=== PATIENT | male | born 1985 | race Caucasian/White ===

== ENCOUNTER 2018-07-29 20:44 | Emergency (ER) | payer OTHER ==
[2018-07-29 20:56] VITALS: BP 157/109
--- NOTE | 2018-07-29 21:26 | UC ---
Hand/Wrist HPI - HPI Summary HPI Summary: 33-year-old male comes in with a chief complaint of right wrist pain. This morning when he woke up he had some swelling and pain on the dorsal aspect of the right wrist. Pain radiates into the dorsum of the right hand to the MCP joints. It also radiates medially into the distal forearm on the dorsal aspect. Pain is worse with flexion extension and other movements of the wrist. No weakness or numbness no known injury. No fevers or chills no skin break. Patient has full range of motion however it is painful. - History Of Current Complaint Chief Complaint: UCUpperExtremity Stated Complaint: HAND PAIN Time Seen by Provider: 07/29/18 21:10 Pain Intensity: 5 - Allergies/Home Medications Allergies/Adverse Reactions: Allergies Allergy/AdvReac Type Severity Reaction Status Date / Time No Known Allergies Allergy Verified 07/29/18 20:56 Home Medications: Home Medications Ibuprofen TAB* [Advil TAB*] 400 mg PO ONCE PRN 07/29/18 [History Confirmed 07/29] PMH/Surg Hx/FS Hx/Imm Hx Previously Healthy: Yes - Surgical History Surgical History: Yes Surgery Procedure, Year, and Place: Appendectomy 2013 - Family History Known Family History: Positive: Non-Contributory - Social History Alcohol Use: Occasionally Substance Use Type: None Smoking Status (MU): Never Smoked Tobacco Review of Systems All Other Systems Reviewed And Are Negative: Yes Constitutional: Positive: Negative Skin: Positive: Negative Eyes: Positive: Negative ENT: Positive: Negative Respiratory: Positive: Negative Cardiovascular: Positive: Negative Motor: Positive: Negative Neurovascular: Positive: Negative Musculoskeletal: Positive: Other: - SEE HPI Neurological: Positive: Negative Psychological: Positive: Negative Is Patient Immunocompromised?: No Physical Exam Triage Information Reviewed: Yes Appearance: Well-Appearing, No Pain Distress, Well-Nourished Vital Signs: Initial Vital Signs Temp 98 F 07/29/18 20:52 Pulse 82 07/29/18 20:52 Resp 16 07/29/18 20:52 BP 157/109 07/29/18 20:52 Pulse Ox 100 07/29/18 20:52 Vital Signs Reviewed: Yes Eye Exam: Normal Eyes: Positive: Conjunctiva Clear Neck exam: Normal Neck: Positive: Supple Musculoskeletal: Positive: Other: - Right wrist has some swelling that is soft to palpation on the dorsal aspect at the base of the second and third metacarpals. It is not hot to touch. There is some erythema in this area. Tender to palpation of the dorsum of the hand to the MCPs and also slightly proximally into the distal forearm. No snuffbox tenderness. Fingers have good range of motion but there is pain associated with full extension and flexion of both the fingers and the wrist. Elbow has full range of motion. There is normal capillary refill and no sensation deficit in the fingers hand wrist and forearm. Neurological Exam: Normal Neurological: Positive: Alert, Muscle Tone Normal Psychological Exam: Normal Psychological: Positive: Age Appropriate Behavior Skin Exam: Normal Hand/Wrist Course/Dx - Course Course Of Treatment: I discussed the x-rays with the patient and his partner. I do not see any fracture radiologist reading is pending. Nursing placed a cock -up splint and the patient is neurovascularly intact after placement. Overall the plan is as to treated as a sprain with eyes anti-inflammatories and immobilization. Follow-up with orthopedics if not completely improved. Get reevaluated sooner if worse or any other concerns. - Differential Dx/Diagnosis Provider Diagnosis: Pain and swelling of right wrist Discharge - Sign-Out/Discharge Documenting (check all that apply): Patient Departure All imaging exams completed and their final reports reviewed: No - Discharge Plan Condition: Stable Disposition: HOME Patient Education Materials: Wrist Sprain (ED) Referrals: Tani Mitchell MD [Medical Doctor] - Additional Instructions: FOLLOW UP WITH ORTHOPEDICS, DR MITCHELL, IF NOT COMPLETELY IMPROVED. TAKE IBUPROFEN 600MG EVERY 6 HOURS NEEDED. GET RECHECKED FOR ANY WORSENING OF YOUR CONDITION; PAIN, SIGNS OF INFECTION, SPREAD OF THE SWELLING AND PAIN OR QUESTIONS OR CONCERNS. - Billing Disposition and Condition Condition: STABLE Disposition: Home
--- NOTE | 2018-07-30 11:41 | UC ---
- Progress Note Progress Note: XR: IMPRESSION: #. Negative exam No change in plan of care Course/Dx - Diagnoses Provider Diagnoses: Pain and swelling of right wrist Discharge - Sign-Out/Discharge Documenting (check all that apply): Post-Discharge Follow Up All imaging exams completed and their final reports reviewed: Yes - Discharge Plan Condition: Stable Disposition: HOME Patient Education Materials: Wrist Sprain (ED) Referrals: Tani Mitchell MD [Medical Doctor] - Additional Instructions: FOLLOW UP WITH ORTHOPEDICS, DR MITCHELL, IF NOT COMPLETELY IMPROVED. TAKE IBUPROFEN 600MG EVERY 6 HOURS NEEDED. GET RECHECKED FOR ANY WORSENING OF YOUR CONDITION; PAIN, SIGNS OF INFECTION, SPREAD OF THE SWELLING AND PAIN OR QUESTIONS OR CONCERNS. - Billing Disposition and Condition Condition: STABLE Disposition: Home
== END 2018-07-29 21:33 | disposition home or self-care (01) ==
LOC: UCEAST 20:44
DX: M25.531 Pain in right wrist (principal); M25.431 Effusion, right wrist
CPT/HCPCS: 99202; G0463